=== PATIENT | male | born 1970 | race Caucasian/White ===

== ENCOUNTER 2021-03-01 13:58 | Observation (INO) ==
[2021-03-01] MEDS ORDERED: Ipratropium/Albuterol Neb 3 ML IH ONE (14:19)
[2021-03-01] MEDS ORDERED: predniSONE 20 MG TABLET PO ONE (14:19)
[2021-03-01] MEDS ORDERED: Aspirin 325 MG TABLET PO ONE (14:25)
[2021-03-01 14:36] LABS: Basophils # 0.1 K/mcL (0.0-0.2); Eosinophils # 0.8 K/mcL (0.0-0.6); Eosinophils % 9.1 %; Hemoglobin 15.7 g/dL (12.9-16.9); Immature Granulocytes % 1.2 % (0-4); Lymphocytes # 2.4 K/mcL (0.6-4.6); Lymphocytes % 27.7 %; Mean Corpuscular HGB Conc 36.5 g/dL (31.6-35.5); Mean Corpuscular Hemoglobin 34.4 pg (28.0-33.3); Mean Corpuscular Volume 94.3 fL (83.0-100.0); Mean Platelet Volume 9.6 fL (9.4-12.4); Monocytes # 1.1 K/mcL (0.0-1.3); Monocytes % 12.7 %; Neutrophils # 4.2 K/mcL (1.6-8.9); Platelet Count 204 K/mcL (140-400); Red Blood Count 4.56 M/mcL (4.19-5.50); Red Cell Distribution Width 11.1 % (11.5-14.5); Segmented Neutrophils % 48.3 %; White Blood Count 8.6 K/mcL (4.3-11.1)
[2021-03-01 15:03] LABS: BUN/Creatinine Ratio 9 (6-26); Blood Urea Nitrogen 5 mg/dL (6-20); Calcium 8.7 mg/dL (8.6-10.3); Carbon Dioxide 25 mEq/L (23-29); Chloride 85 mEq/L (98-107); Glucose 96 mg/dL (70-105); Osmolality,Calculated 245 (280-300); Potassium 3.6 mEq/L (3.5-5.1); Sodium 119 mEq/L (136-145); Troponin I < 0.03 ng/mL (< 0.04); eGFR For African Americans > 60 (> 60); eGFR For Non-African Americans > 60 (> 60)
[2021-03-01] MEDS ORDERED: 0.9 % Sodium Chloride 1,000 ML IVC ONE (15:04)
[2021-03-01] MEDS ORDERED: Naloxone 0.4 MG/ML INJ IVP PRN (15:33)
[2021-03-01] MEDS ORDERED: Ondansetron 4 MG/2 ML VIAL IVP PRN (15:33)
[2021-03-01] MEDS ORDERED: *HR* HYDROcodone/Acet 5/325 mg TABLET PO PRN (15:33)
[2021-03-01 15:37] LABS: Influenza A PCR Negative (Negative); Influenza B PCR Negative (Negative); Resp. Syncytial Virus PCR Negative (Negative)
[2021-03-01] MEDS ORDERED: Ipratropium/Albuterol Neb 3 ML IH PRN (15:37)
[2021-03-01 15:38] LABS: SARS-CoV-2 by PCR (In House) Negative (Negative)
[2021-03-01] MEDS ORDERED: 0.9 % Sodium Chloride 1,000 ML IVC SCH (15:45)
[2021-03-01] MEDS: MethylPREDNISolone 40 MG/ML VIAL IVP SCH (17:09)
[2021-03-01] MEDS: *HR* Heparin 5,000 UNIT/ML VIAL SQ SCH (17:15)
[2021-03-01] MEDS: Budesonide/Formoterol 160/4.5 1 PUFF INH IH SCH (19:59)
[2021-03-01] MEDS ORDERED: *HR* Labetalol 20 MG/4 ML SYRINGE IVP ONE (23:12)
[2021-03-02 02:40] LABS: BUN/Creatinine Ratio 10 (6-26); Blood Urea Nitrogen 7 mg/dL (6-20); Calcium 8.8 mg/dL (8.6-10.3); Carbon Dioxide 23 mEq/L (23-29); Chloride 96 mEq/L (98-107); Glucose 203 mg/dL (70-105); Magnesium 1.9 mg/dL (1.6-2.6); Osmolality,Calculated 272 (280-300); Phosphorous 1.6 mg/dL (2.7-4.5); Potassium 3.9 mEq/L (3.5-5.1); Sodium 129 mEq/L (136-145); eGFR For African Americans > 60 (> 60); eGFR For Non-African Americans > 60 (> 60)
[2021-03-02 02:53] LABS: Thyroid Stimulating Hormone 0.721 mcIU/mL (0.340-5.600)
[2021-03-02 03:08] VITALS: TEMP 98.2
[2021-03-02] MEDS: MethylPREDNISolone 40 MG/ML VIAL IVP SCH (05:11)
[2021-03-02] MEDS: *HR* Heparin 5,000 UNIT/ML VIAL SQ SCH (05:11)
[2021-03-02] MEDS ORDERED: Regadenoson 0.4 MG/5 ML SYRINGE IVP ONE (06:47)
[2021-03-02] MEDS ORDERED: Potassium Phosphate 44 MEQ in 0.9 % Sodium Chloride 250 ML IVPB ONE (07:19)
[2021-03-02] MEDS ORDERED: levoFLOXacin 750 MG TABLET PO SCH (09:00)
[2021-03-02] MEDS: Budesonide/Formoterol 160/4.5 1 PUFF INH IH SCH (10:21)
[2021-03-02 10:47] VITALS: BP 134/90; PULSE 106; O2SAT 95
== END 2021-03-02 12:37 | disposition home or self-care (01) ==
LOC: 2ANU 13:58 → EMEROOARM 13:58 → SUATTDRO 15:45 → 2ANU 16:38
PROVIDERS: ADMIT Family Medicine; ATTEND Internal Medicine